=== PATIENT | female | born 1985 | race Caucasian/White ===

== ENCOUNTER 2021-08-09 16:07 | Emergency (ER) | payer OTHER ==
[~2021-08-09] VITALS: Ht 167.6 cm; Wt 60.0 kg
[2021-08-09 17:14] LABS: BASOPHILS % 0.2 % (0.0-2.0); EOSINOPHILS % 0.8 % (0.0-5.0); HEMOGLOBIN. 11.3 g/dL (12.0-16.0); LYMPHOCYTES % 12.1 % (20.0-50.0); MEAN CORPUSCULAR HEMOGLOBIN 32.7 pg (28.0-32.0); MEAN CORPUSCULAR VOLUME 98.6 fL (81.0-99.0); MEAN PLATELET VOLUME 7.3 fl (7.4-10.4); MONOCYTES % 9.6 % (2.0-8.0); NEUTROPHILS % 77.3 % (40.0-76.0); PLATELET 379 x1000/uL (130-400); RED BLOOD CELL COUNT 3.45 mill/uL (4.2-5.4); RED CELL DISTRIBUTION WIDTH 12.6 % (11.6-14.6)
[2021-08-09 17:20] LABS: HCG SCREEN NEGATIVE
[2021-08-09 17:21] LABS: CHLORIDE 101 mEq/L (98-107)
[2021-08-09 17:37] LABS: CLARITY URINE CLEAR (CLEAR); COLOR URINE YELLOW (YELLOW); KETONES URINE NEGATIVE (NEGATIVE); LEUKOCYTE ESTERASE URINE 1+ (NEGATIVE); NITRITE URINE NEGATIVE (NEGATIVE); OCCULT BLOOD URINE 2+ (NEGATIVE); PROTEIN URINE NEGATIVE (NEGATIVE)
[2021-08-09] MEDS ORDERED: MAGNESIUM/ALUMINUM HYDROXIDE/SIMETHICONE 30ML UDC PO STA (20:40)
[2021-08-09] MEDS ORDERED: VISCOUS LIDOCAINE 2% 15 ML UDC PO STA (20:40)
[2021-08-09] MEDS ORDERED: FAMOTIDINE 20MG TABLET PO ONE (20:45)
[2021-08-09] MEDS ORDERED: NITR-87 MT (21:22)
[2021-08-09 22:19] VITALS: BP 110/68
== END 2021-08-09 22:20 | disposition home or self-care (01) ==
LOC: ER 16:07
DX: N39.0 Urinary tract infection, site not specified (principal); R10.11 Right upper quadrant pain
CPT/HCPCS: 36415; 74176; 76705; 76830; 76856; 80053; 81003; 81025; 84703; 85025; 93976; 99285